=== PATIENT | male | born 1990 | race Caucasian/White ===

== ENCOUNTER → 2023-04-25 | Outpatient (CLI) | payer BC, SELFPAY ==
[2023-04-27 19:07] LABS: QNTFERON TB Mitogen Value > 10.00 IU/mL (.); QNTFERON TB Nil Value 0 IU/mL (.); QNTFERON TB1+ Ag Value 0 IU/mL (.); QNTFERON TB2+ Ag Value 0 IU/mL (.); QNTIFERON TB Positive Criteria Negative (Negative)
== END | disposition home or self-care (01) ==
PROVIDERS: Referring Provider Dermatology; Visit Provider Dermatology
DX: L82.1 Other seborrheic keratosis (principal); L57.8 Other skin changes due to chronic exposure to nonionizing radiation; L81.4 Other melanin hyperpigmentation; D18.01 Hemangioma of skin and subcutaneous tissue; Z71.89 Other specified counseling; L40.0 Psoriasis vulgaris; L81.3 Cafe au lait spots
CPT/HCPCS: 36415; 86480

== ENCOUNTER → 2023-08-17 | Outpatient (CLI) | payer BC, SELFPAY ==
[2023-08-17 15:14] LABS: Absolute Lymphocyte Count 2.22 X10^3/uL (0.83-4.51); Absolute Neutrophil Count 5.3 X10^3/uL (2.0-7.7); Basophil# 0.04 X10^3/uL; Basophil% 0.5 % (0-1); Eosinophil# 0.05 X10^3/uL; Eosinophils% 0.6 % (0-5); Hematocrit 48.8 % (40-54); Hemoglobin 16.4 g/dL (13.0-16.5); Lymphocyte # 2.22 X10^3/ul (0.83-4.51); Lymphocyte % 27.2 % (19-41); Mean Corp Hgb Conc 33.6 g/dL (32-36); Mean Corpuscular Hgb 29.7 pg (27.0-32.0); Mean Corpuscular Volume 88.4 fL (80-94); Mean Platelet Vol. 9.8 fl (6.2-12.0); Monocyte% 7.3 % (0-10); NRBC Flagged by Analyzer 0 % (0-5); Neutrophil # 5.25 X10^3/uL (2.7-7.7); Neutrophil % 64.3 % (47-70); Platelet Count 262 K/mm3 (150-450); Red Blood Count 5.52 M/mm3 (4.6-6.2); White Blood Count 8.2 K/mm3 (4.4-11.0)
[2023-08-17 15:29] LABS: Vitamin D,25 Hydroxy 20.6 ng/mL
[2023-08-17 15:33] LABS: Hemoglobin A1c 5.3 % (3.8-5.6)
[2023-08-17 15:44] LABS: ALB/GLOB Ratio 1.1 RATIO (0.9-2.4); AST(SGOT) 27 U/L (15-37); Alanine Aminotransfer ALT/SGPT 45 U/L (16-61); Alkaline Phosphatase 97 U/L (45-117); Anion Gap 7 (5-15); BUN 11 mg/dL (7-18); BUN/Creat Ratio 8.2 RATIO (10-20); Calcium,Total 9.1 mg/dL (8.5-10.1); Chloride 103 mmol/L (98-107); Cholesterol 207 mg/dL (200); Creatinine, Serum 1.34 mg/dL (0.70-1.30); EST Glomerular Filtration Rate 65 mL/min (>60); Est Glom Filt Rate - Afr Amer 78 mL/min (>60); Globulin 3.8 g/dL (2.2-4.2); Glucose 103 mg/dL (74-106); High Density Lipoprotein 41 mg/dL; Potassium 3.5 mmol/L (3.5-5.1); Protein, Total 7.8 g/dL (6.4-8.2); Sodium Level 138 mmol/L (136-145); Thyroid Stim Hormone (TSH) 1.82 uIU/mL (0.358-3.74); Triglycerides 348 mg/dL; Very Low Density Lipoprotein 70 mg/dL (5-40)
== END | disposition home or self-care (01) ==
LOC: BIMLAB 12:03
PROVIDERS: PCP Internal Medicine; Referring Provider Internal Medicine; Visit Provider Internal Medicine
DX: F41.9 Anxiety disorder, unspecified (principal); F32.A Depression, unspecified; F90.9 Attention-deficit hyperactivity disorder, unspecified type; Z79.899 Other long term (current) drug therapy
CPT/HCPCS: 36415; 80053; 80061; 82306; 83036; 84443; 85025

== ENCOUNTER 2024-09-04 16:48 | Emergency (ER) | payer OTHER, SELFPAY ==
[2024-09-04 16:48] VITALS: BP 129/92; PULSE 80; RESP 15; TEMP 36.6; O2SAT 99; BMI 39.8
[2024-09-04 17:50] VITALS: BP 103/67; PULSE 68; RESP 16; O2SAT 97
[2024-09-04 18:00] VITALS: BP 128/78; PULSE 64; RESP 16; TEMP 37.2; O2SAT 98
--- NOTE | 2024-09-04 18:00 | EDS_ITS ---
HPI History of Present Illness Chief Complaint: Chest Pain Informant: patient Onset/Context/Timing Onset: Days (3) Activity at onset: gradual and rest (Sitting) Timing: Intermittent Quality: Positive for Heaviness and Pressure Location: Left Parasternal Worsened By: Nothing Relieved By: Nothing Associated Symptoms: Positive for Lightheadedness; Negative for Nausea, Vomiting, Diaphoresis, Dyspnea, Cough, Fever, Acid Reflux or Palpitations Narrative Narrative: Patient presents with intermittent chest pain for the past 3 days. Patient states it comes on gradually. Patient states it comes on while he is sitting. Patient describes it as heaviness and pressure. Patient states it is over the left parasternal area. Patient states nothing makes it better nothing makes it worse. Patient admits to some lightheadedness with the pain. Patient denies any nausea or vomiting. Patient denies any diaphoresis. Patient denies any shortness of breath or cough. Patient denies any palpitations. Patient states he had a recent plane trip to [place] but denies any long plane rides or car rides. CVD Risk Factors: Negative for Hypertension, Diabetes, Hypercholesterolemia, Family History 1' </=55 or Smoking PE Risk Factors: Positive for Recent Travel/Surgery; Negative for Recent Immobilization, Prior DVT or PE, Cancer or OCP + Smoking + >/=35 PFSH PFSH Medical History Depression Anxiety ADD (attention deficit disorder) Home Medications ?Medication ?Instructions ?Recorded ?Last Taken ?Type hydroxyzine HCl 25 mg tablet 25 mg PO BID PRN anxiety #60 tabs 07/31/24 Unknown Rx fluoxetine 40 mg capsule 80 mg (2 x 40 mg) PO DAILY # 180 08/07/24 Unknown Rx caps methylphenidate HCl 36 mg 36 mg PO DAILY 09/04/24 Unkn own History tablet,extended release 24 hr Allergy/AdvReac Type Severity Reaction Status Date / Time No Known Allergies Allergy Verified 09/04/24 16:51 Family History Other No pertinent family history Surgical History H/O meniscectomy of right knee Social History adopted: No household members: spouse and children number of children: 1 current occupational status: employed 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 pets and animals: No Smoking Status: Former smoker Electronic Cigarette Use: not used alcohol intake: current alcohol intake frequency: a few times a week substance use type: does not use caffeine: Yes (3) Type: coffee what type of physical activity do you participate in: weight training frequency: 1-2 times per week do you feel safe at home: Yes ROS ROS ED Constitutional Constitutional ED: Denies chills or fever(s) Eyes Eyes: Denies blurry vision or change in vision ENT ENT ED: Denies rhinorrhea or sore throat Cardiovascular Cardiovascular: Denies chest pain or palpitations Respiratory/Chest Respiratory/Chest: Denies cough or dyspnea Gastrointestinal Gastrointestinal: Denies nausea or vomiting Genitourinary Genitourinary ED: Denies dysuria or hematuria Musculoskeletal Musculoskeletal: Reports back pain; Denies neck pain Integumentary Denies abscess or rash Neurologic Neurologic: Denies headache(s) or weakness Psychiatric Psychiatric: Reports anxiety Allergic/Immunologic Allergic/Immunologic ED: Denies mouth swelling or urticaria EXAM Physical Exam Const Vital Signs: 09/04/24 16:48 09/04/24 17:30 09/04/24 17:50 Temperature 98 F Temperature Source Oral Pulse Rate 80 68 Respiratory Rate 15 16 Respiratory Effort Normal Blood Pressure 129/92 H 103/67 Blood Pressure Mean 104 79 Pulse Ox 99 97 Oxygen Delivery Method Room Air Room Air 09/04/24 18:00 09/04/24 18:07 09/04/24 20:04 Temperature 98.9 F Temperature Source Oral Pulse Rate 64 68 Respiratory Rate 16 22 H Respiratory Effort Blood Pressure 128/78 H Blood Pressure Mean 94 Pulse Ox 98 94 Oxygen Delivery Method Room Air Room Air Positive well nourished and well developed Constitutional Narrative: BMI is 39.8. General Appearance ED: well developed and NAD HEENT Reports moist mucous membranes Neck supple and no JVD Chest Wall Chest: tenderness costochondral junction 5th rib and 6th rib Resp normal respiratory effort and clear to auscultation bilaterally Cardio regular rate and regular rhythm GI soft to palpation, non-tender and non-distended Extremity normal to inspection General Extremety ED: Negative for edema or tenderness General Extremity: Negative for edema Neuro oriented x3, CN's II-XII intact bilaterally and no sensory deficits noted Sensorium / Orientation: awake and alert Motor Exam: strength 5/5 throughout Psych mental status grossly normal Heart Score History: Slightly/Non-Suspicious ECG: Normal Age: </= 45 years Risk Factors: No Risk Factors Troponin: </= Normal Limit Score: 0 MDM MDM MDM Narrative Medical decision making narrative: Differential diagnosis includes cardiac dysrhythmia, cardiac ischemia, pneumonia, pneumothorax, electrolyte abnormality, musculoskeletal pain, and anxiety. EKG will be obtained to assess for cardiac dysrhythmia and cardiac ischemia. Chest x-ray will be obtained to assess for pneumonia and pneumothorax. CBC will be obtained to assess for leukocytosis and anemia. Basic metabolic profile will be obtained to assess for electrolyte abnormality and renal function. High-sensitivity troponin will be obtained to assess for c ardiac ischemia. 2-hour repeat high-sensitivity troponin will be obtained to assess for ongoing cardiac ischemia. Lab Data Attestation: I reviewed the patient's lab results. Lab results narrative: CBC was reviewed and was within normal limits. Basic metabolic profile was reviewed. Creatinine was slightly elevated at 1.26. The remainder is within normal limits. High-sensitivity troponin was reviewed and was less than 6. 2- hour repeat high-sensitivity troponin was reviewed and was 7. Labs: Laboratory Results - last 24 hr 09/04/24 09/04/24 17:27 19:35 WBC 7.9 RBC 5.37 Hgb 16.0 Hct 46.7 MCV 87.0 MCH 29.8 MCHC 34.3 RDW Std Deviation 38.4 RDW Coeff of Starla 12.0 Plt Count 303 MPV 9.2 Immature Gran % (Auto) 0.300 Neut % (Auto) 53.9 Lymph % (Auto) 37.3 [place] % (Auto) 6.8 Eos % (Auto) 0.9 Baso % (Auto) 0.8 Absolute Neuts (auto) 4.3 Absolute Lymphs (auto) 2.96 Nucleated RBC % 0 Sodium 137 Potassium 4.0 Chloride 100 Carbon Dioxide 25.6 Anion Gap 11 BUN 12 Creatinine 1.26 H Estim Creat Clear Calc 118.91 Est GFR (MDRD) Non-Af 76 BUN/Creatinine Ratio 9.1 L Glucose 96 Calcium 9.5 Troponin T High Sens < 6 Troponin T Hi Sens 2 Hr 7 Radiography Chest X-Ray - ED: 2 View, Read by ED Physician and Read by Radiologist Diagnostic Testing: Clinical Impression(s) from Imaging Studies Chest X-Ray 09/04/24 18:20 IMPRESSION: NEGATIVE CHEST Reading Location: [facility] [place] and lateral chest x-ray was obtained. There are 2 views. On my independent interpretation, lung leo are clear. There is normal cardiac silhouette. Bony thorax is normal. There is no acute process noted. Radiologist also interpreted the x-ray and agrees. EKG Initial EKG: Attestation: I personally reviewed and interpreted this EKG as follows: Interpretation: Sinus Rhythm (79) and No Acute Injury Pattern Comments: EKG was obtained. On my independent interpretation, it showed a normal sinus rhythm with a rate of 79. UT interval, QRS interval, and QTc intervals were all normal. [place] was normal. There are no acute ST or T wave changes. Prior EKG tracings: not available for review Prior: No Prior Treatment and Re-Evaluation :: Patient was given aspirin here. Patient was advised of his findings. Patient has a HEART score of 0. Patient was advised that this is low risk for acute cardiac event. Patient was instructed to follow-up with his primary care physician in 5 to 7 days for further evaluation. Patient understood and was agreeable with the plan. All questions were answered. Discharge Plan Triage Chief Complaint: Chest Pain ED Provider: Casper Mancuso Dx/Rx/DC Orders Clinical Impression: Chest pain, Anxiety Instructions: ED Chest Pain, Uncertain Cause Prescriptions: No Action methylphenidate HCl 36 mg tablet extended release 24hr 36 mg PO DAILY hydroxyzine HCl 25 mg tablet 25 mg PO BID PRN (Reason: anxiety) Qty: 60 1RF fluoxetine 40 mg capsule 80 mg PO DAILY Qty: 180 1RF Primary Care Provider: Megan Marina Referrals: Megan Marina MD [Primary Care Provider] - 5-7 Days Print Language: Frisian Disposition Disposition: Home, Self Care
--- NOTE | 2024-09-04 18:06 | EKG12_ITS ---
Test Reason : CP Blood Pressure : */* mmHG Vent. Rate : 79 BPM Atrial Rate : 79 BPM P-R Int : 154 ms QRS Dur : 94 ms QT Int : 376 ms P-R-T Axes : 65 22 27 degrees QTcB Int : 431 ms Normal sinus rhythm Normal ECG Confirmed by JUAN RAMON GRIFFIN, IVELISSE ([id number]), brands editor ALMAZ TOMLIN ([id number]) on 09/05/2024 8:41:02 AM Referred By: Confirmed By: IVELISSE DELATORRE MD
[2024-09-04] MEDS: Aspirin 81 MG TAB.CHEW 324 MG PO (18:12)
[2024-09-04 18:17] LABS: Absolute Lymphocyte Count 2.96 X10^3/uL (0.83-4.51); Absolute Neutrophil Count 4.3 X10^3/uL (2.0-7.7); Basophil# 0.06 X10^3/uL; Basophil% 0.8 % (0-1); Eosinophil# 0.07 X10^3/uL; Eosinophils% 0.9 % (0-5); Hematocrit 46.7 % (40-54); Lymphocyte # 2.96 X10^3/ul (0.83-4.51); Lymphocyte % 37.3 % (19-41); Mean Corp Hgb Conc 34.3 g/dL (32-36); Mean Corpuscular Hgb 29.8 pg (27.0-32.0); Mean Platelet Vol. 9.2 fl (6.2-12.0); Monocyte# 0.54 X10^3/uL; Monocyte% 6.8 % (0-10); NRBC Flagged by Analyzer 0 % (0-5); Neutrophil # 4.28 X10^3/uL (2.7-7.7); Neutrophil % 53.9 % (47-70); Platelet Count 303 K/mm3 (150-450); RBC Distribution Width SD 38.4 fl (35.1-43.9); Red Blood Count 5.37 M/mm3 (4.6-6.2); White Blood Count 7.9 K/mm3 (4.4-11.0)
--- NOTE | 2024-09-04 18:20 | RAD_ITS ---
PROCEDURE: CHEST PA AND LATERAL 09/04/2024 REASON FOR EXAM: CHEST PAIN TECHNIQUE: Frontal and lateral views of the chest. COMPARISON: None. FINDINGS: Hardware: EKG wires overlie the chest. Heart: The heart size is normal. Mediastinum: The mediastinal contour is unremarkable. Lungs: No focal consolidation, pleural effusion or pneumothorax. Bones: Degenerative changes are identified within the thoracic spine. RAD/Chest PA and Lateral IMPRESSION: NEGATIVE CHEST Reading Location: [id number]
[2024-09-04 19:12] LABS: Troponin T High Sensitivity < 6 ng/L (<=22)
[2024-09-04 19:13] LABS: Anion Gap 11 (5-15); BUN 12 mg/dL (4-19); BUN/Creat Ratio 9.1 RATIO (10-20); Calcium,Total 9.5 mg/dL (7.6-11.0); Carbon Dioxide 25.6 mmol/L (21.0-32.0); Chloride 100 mmol/L (98-108); Creatinine, Serum 1.26 mg/dL (0.70-1.20); EST Glomerular Filtration Rate 76 (>60); Estimated Creatinine Clearance 118.91 ml/min (50-250); Glucose 96 mg/dL (70-99); Sodium Level 137 mmol/L (133-145)
[2024-09-04 20:04] VITALS: PULSE 68; RESP 22; O2SAT 94
[2024-09-04 20:15] LABS: Troponin T High Sens 2 HR 7 ng/L (<=22)
[2024-09-04 20:31] VITALS: BP 113/77; PULSE 77; RESP 14; TEMP 36.1; O2SAT 96
== END 2024-09-04 20:31 | disposition home or self-care (01) ==
PROVIDERS: Emergency Provider Emergency Medicine; PCP Internal Medicine; Visit Provider Emergency Medicine
DX: R07.9 Chest pain, unspecified (principal); Z87.891 Personal history of nicotine dependence; F41.9 Anxiety disorder, unspecified; M54.9 Dorsalgia, unspecified; F32.A Depression, unspecified; F98.8 Other specified behavioral and emotional disorders with onset usually occurring in childhood and adolescence
CPT/HCPCS: 71046; 80048; 84484; 85025; 93005; 99284; A4216

== ENCOUNTER → 2025-04-08 | Outpatient (CLI) | payer OTHER, SELFPAY ==
[2025-04-08 10:40] LABS: AST(SGOT) 21 U/L (<=37); Alanine Aminotransfer ALT/SGPT 21 U/L (<=46); Albumin, Serum 4.6 g/dL (3.5-5.0); Alkaline Phosphatase 78 U/L (40-129); Anion Gap 10 (5-15); BUN 16 mg/dL (4-19); BUN/Creat Ratio 14.2 RATIO (10-20); Calcium,Total 9.5 mg/dL (7.6-11.0); Carbon Dioxide 26.1 mmol/L (21.0-32.0); Chloride 101 mmol/L (98-108); Cholesterol 216 mg/dL (<=200); Globulin 2.6 g/dL (2.2-4.2); Glucose 91 mg/dL (70-99); Low Density Lipoprotein Calc. 154 mg/dL; Potassium 4.3 mmol/L (3.3-5.1); Triglycerides 81 mg/dL; Troponin T High Sensitivity < 6 ng/L (<=22); Very Low Density Lipoprotein 16 mg/dL (5-40); Vitamin D,25 Hydroxy 31.9 ng/mL (30-100); cholesterol:hdl ratio screen 4.51
== END | disposition home or self-care (01) ==
LOC: MTLAB 08:15
PROVIDERS: PCP Internal Medicine; Referring Provider Internal Medicine; Visit Provider Internal Medicine
DX: E78.2 Mixed hyperlipidemia (principal); M79.622 Pain in left upper arm; F32.A Depression, unspecified; F41.9 Anxiety disorder, unspecified; E55.9 Vitamin D deficiency, unspecified
CPT/HCPCS: 36415; 80053; 80061; 82306; 84484

== ENCOUNTER → 2025-04-09 | Outpatient (CLI) | payer OTHER, SELFPAY | END | disposition home or self-care (01) | PROVIDERS: PCP Internal Medicine; Referring Provider Nurse Practitioner Family; Visit Provider Nurse Practitioner Family | DX: R06.83 Snoring (principal); R40.0 Somnolence | CPT/HCPCS: 95806 ==